=== PATIENT | female | born 1980 | race African-American/Black ===

== ENCOUNTER 2016-09-06 11:56 | Emergency (ER) | payer OTHER ==
[~2016-09-06] VITALS: Ht 157.5 cm; Wt 54.4 kg
--- NOTE | ~2016-09-06 | CT2 ---
[facility] A Service of [facility] / [facility] RADIOLOGY TEXT RESULTS PATIENT: MARY CORTEZ LOCATION: [facility] : 84 UNIT #: [id number] AGE: [address]: Dipesh Chang MD SEX: F ORDER DR: [id number] [facility] [address] [place], [place] [address] [id number] MR#: [id number] Acc #: [id number] NAME: MARY CORTEZ : 1980 SEX: F STUDY DATE/TIME: 09/06/2016 14:32 UNIT: [facility] ROOM: STUDY DESCRIPTION: CT Abd and Pelv W Cont Attending Physician: Dipesh Chang M.D. Ordering Physician: Dipesh Chang M.D. Primary Care Physician: Primary Care Physician No MEDICAL IMAGING REPORT This report is preliminary unless electronic signature is present EXAM CT abdomen and pelvis, 09/06 INDICATION Umbilical hernia pain. Mid abdominal pain and nausea for 2 days. TECHNIQUE Axial images were obtained through the abdomen and pelvis following oral and IV contrast administration. Multiplanar reformats were obtained. This CT exam was performed with one or more of the following radiation dose reduction techniques: automatic exposure control, adjustment of mA and/or kV according to patient size, and iterative reconstruction. COMPARISON 05/08/2011 FINDINGS ABDOMEN: Lung bases are clear. Gallbladder is normal. No biliary obstruction. Solid organs are normal. The GI tract is normal. There is a small fat-containing supraumbilical ventral wall hernia which is unchanged. PELVIS: The appendix is normal. The remainder of the GI tract is normal as well. Urinary bladder is decompressed but grossly normal. The endometrium appears thickened and hypodense, asymmetrically pronounced in the right uterine horn. Consider followup pelvic ultrasound. IMPRESSION 1. Normal GI tract, including the appendix. 2. Small fat-containing supraumbilical hernia, unchanged from 2012 3. Prominent endometrium asymmetrically so to the right of midline. Consider followup pelvic ultrasound. This could be performed [facility] A Service of [facility] / [facility] RADIOLOGY TEXT RESULTS PATIENT: MARY CORTEZ LOCATION: [facility] : 84 UNIT #: [id number] AGE: [address]: Dipesh Chang MD SEX: F ORDER DR: non-emergently if the patient has no signs or symptoms related to the pelvis. Correlate clinically in this regard. Dictated by... Sanjeev Wise Jr., M.D. THIS IS AN ELECTRONICALLY VERIFIED REPORT Sanjeev Wise Jr., M.D. at 09/07/2016 1:53 PM JOSE/pretty TD: 09/07/2016 08:22 JOB #: [id number] MEDICAL IMAGING REPORT Page 1 of 1 COPY
[~2016-09-06 11:56] MED LIST: BROMPHED DM PO; DARVOCET-N 1001 TAB PO; DICLOFENAC PO; IRON1 TA1 PO; KEFLEX500 MG PO; NAPROXEN500 M1 PO; NIFEREX-150 CAP1 CAP; NIFEREX-150150 MG PO; PHENERGAN25 MG PO; SUDAFED PO; ULTRAM PO; VOLTAREN75 MG PO
[2016-09-06 12:42] LABS: URINE SOURCE CLEAN CATCH
[2016-09-06 12:51] LABS: BASOPHIL# 0.1 X10e3 (0-0.3); EOSINOPHIL# 0.1 X10e3 (0-0.7); EOSINOPHIL% 1.2 % (0.0-7.0); HEMATOCRIT 39.7 % (35.0-45.0); HEMOGLOBIN 12.3 gm/dL (12.0-16.0); LYMPHOCYTE# 1.8 X10e3 (1.0-3.5); LYMPHOCYTE% 34.3 % (17.0-45.0); MEAN CORPUSCULAR HEMOGLOBIN 23.2 PG (28-34); MEAN CORPUSCULAR HGB CONC 30.9 g/dL (30-36); MEAN PLATELET VOLUME 8.8 FL (6.5-11.5); MONOCYTE# 0.5 X10e3 (0-1.0); NEUTROPHIL# 2.8 X10e3 (1.5-7.1); NEUTROPHIL% 53.5 % (40-75); PLATELET COUNT 240 X10e3 (140-420); RED BLOOD COUNT 5.29 X10e (3.90-5.30); RED CELL DISTRIBUTION WIDTH 13.7 % (11.0-15.5); WHITE BLOOD COUNT 5.2 X10e3 (4.0-10.5)
[2016-09-06 12:51] LABS: URINE APPEARANCE CLEAR; URINE BILIRUBIN NEG (NEG); URINE BLOOD 2+ (NEG); URINE COLOR YELLOW; URINE GLUCOSE NEG (NEG); URINE KETONE NEG (NEG); URINE LEUKOCYTE ESTERASE NEG (NEG); URINE NITRATE NEG (NEG); URINE PROTEIN NEG (NEG); URINE SPECIFIC GRAVITY 1.015 (1.003-1.035); URINE UROBILINOGEN 0.2 MG/DL (NEG)
[2016-09-06 12:53] LABS: DIFF IND NO
[2016-09-06 12:54] LABS: CULTURE INDICATED? NO; URBCS1 AUWI 25-50 /[HPF] (0-2); URINE BACTERIA AUWI NEG (NEGATIVE); URINE SQUAMOUS EPITHELIAL CELL NONE SEEN /[HPF]; UWBCS1 AUWI 0-2 (0-5)
[2016-09-06 13:20] LABS: ALBUMIN SERUM 4.2 g/dL (3.5-5.0); ALKALINE PHOSPHATASE 60 U/L (32-92); ALT (SGPT) 12 U/L (10-40); AST (SGOT) 17 U/L (10-42); BILIRUBIN, DIRECT <0.1 mg/dL (0.0-0.2); BILIRUBIN,TOTAL <0.1 mg/dL (0.2-2.0); BLOOD UREA NITROGEN 6 mg/dL (9-23); BUN/CREATININE RATIO 6.66; CALCIUM SERUM 8.7 mg/dL (8.4-10.2); CARBON DIOXIDE 27 mmol/L (22-31); CHLORIDE 104 mmol/L (100-111); CREATININE SERUM 0.9 mg/dL (0.6-1.4); GLOM FILT RATE Estimated 96.8 mL/min (>60); GLUCOSE FASTING 84 mg/dL (70-110); LIPASE 16 U/L (22-51); POTASSIUM 3.6 mmol/L (3.5-5.1); SODIUM 137 mmol/L (135-145)
== END 2016-09-06 15:31 | disposition home or self-care (01) ==
LOC: CED 11:56
DX: K43.9 Ventral hernia without obstruction or gangrene (principal); F17.200 Nicotine dependence, unspecified, uncomplicated; Z88.0 Allergy status to penicillin
CPT/HCPCS: 36415; 74177; 80048; 80076; 81003; 83690; 84703; 85025; 96374; 96375; 99284; J2270; J2405; Q9967